=== PATIENT | female | born 1945 | race Native Hawaiian/Other Pacific Islander ===

== ENCOUNTER 2020-05-11 11:43 | Outpatient (CLI) | payer OTHER, MEDICARE ==
[2020-05-11 13:10] LABS: PLATELET COUNT 427 K/uL (152-353)
[2020-05-11 18:04] LABS: POTASSIUM 3.7 mmol/L (3.6-5.2)
== END 2020-05-11 20:26 | disposition home or self-care (01) ==
LOC: LABW 11:43
PROVIDERS: Internal Medicine
DX: I12.9 Hypertensive chronic kidney disease with stage 1 through stage 4 chronic kidney disease, or unspecified chronic kidney disease (principal); R41.3 Other amnesia; N18.9 Chronic kidney disease, unspecified; E53.8 Deficiency of other specified B group vitamins; E87.1 Hypo-osmolality and hyponatremia
CPT/HCPCS: 36415; 80053; 81000; 82024; 82043; 82088; 82306; 82330; 82533; 82570; 82607; 82746; 83735; 83835; 83935; 84100; 84133; 84155; 84244; 84300; 84425; 84436; 84443; 85027

== ENCOUNTER 2020-05-12 08:06 | Outpatient (CLI) | payer OTHER, MEDICARE | END 2020-05-12 22:50 | disposition home or self-care (01) | LOC: CT 08:06 | DX: R41.3 Other amnesia (principal) | CPT/HCPCS: Q9963 ==